=== PATIENT | male | born 1995 | race Caucasian/White ===

== ENCOUNTER 2019-08-20 13:48 | Emergency (ER) | payer OTHER, SELFPAY ==
[2019-08-20 13:59] VITALS: BP 136/84; PULSE 66; RESP 18; TEMP 36.4; O2SAT 100
[2019-08-20 14:23] LABS: Add Manual Diff / Slide Review NO; Basophils Absolute Auto 0 /uL (0-100); Basophils Percent Auto 0.5 % (0-2); Eosinophils Absolute Auto 100 /uL (0-450); Eosinophils Percent Auto 1.2 % (2-4); Hematocrit 40.7 % (41-53); Hemoglobin 14.3 g/dL (13.5-17.5); Lymphocytes Absolute Auto 1300 /uL (1100-4500); Lymphocytes Percent Auto 15.8 % (25-40); Mean Corpuscular HGB Conc 35.2 % (30-36); Mean Corpuscular Hemoglobin 29.4 PG (26-34); Mean Corpuscular Volume 83.6 fL (80-100); Monocytes Absolute Auto 600 /uL (0-900); Monocytes Percent Auto 7.1 % (3-14); Neutrophils Absolute Auto 6100 /uL (1500-7000); Neutrophils Percent Auto 75.4 % (50-75); Platelet Count 263 X10^3/uL (150-400); Red Blood Cell Count 4.87 X10^6/uL (4.5-5.9); Red Cell Distribution Width 12.3 % (11.6-14.8); White Blood Cell Count 8.1 X10^3/uL (4.5-11.0)
[2019-08-20] MEDS: SODIUM CHLORIDE 0.9% 1,000 ML 1000 ML IV (14:25)
[2019-08-20] MEDS: KETOROLAC 60 MG/2 ML VIAL 30 MG IV (14:25)
[2019-08-20] MEDS: ONDANSETRON 4 MG/2 ML INJ IV (14:25)
[2019-08-20 14:28] LABS: BUN Creatinine Ratio 18.8 (6-22); Blood Urea Nitrogen 15 mg/dL (9-20); Calcium 9.7 mg/dL (8.4-10.2); Carbon Dioxide 30 mmol/L (22-32); Chloride 100 mmol/L (98-107); Estimated Glomerular Filt Rate > 60.0 mL/min (>60); Glucose 101 mg/dL (70-100); HEMOLYSIS 16 (0-50); Potassium 3.8 mmol/L (3.4-5.1); Sodium 140 mmol/L (137-145)
[2019-08-20 15:20] VITALS: BP 132/78; PULSE 88; RESP 12; O2SAT 100
--- NOTE | 2019-08-20 15:55 | DI.CT.S_ITS ---
PROCEDURE: CT KIDNEY URETER BLADDER (KUB) INDICATIONS: flank pain, hematuria TECHNIQUE: Noncontrast 5 mm thick sections acquired from the diaphragms to the symphysis. 5 mm thick coronal and sagittal reformats were then performed. For radiation dose reduction, the following was used: automated exposure control, adjustment of mA and/or kV according to patient size. COMPARISON: None. FINDINGS: Image quality: Excellent. Lung bases: Lung bases are clear. Heart size is normal. Urinary system: Both kidneys are normal in size. Tiny 1 mm right mid pole renal stone. There is an obstructing 3 mm proximal right ureteral stone identified at the level of the right ureteral pelvic junction. Mild right-sided hydronephrosis with dilated right renal pelvis. Nonobstructing 8 x 5 mm left renal stone. No left-sided ureteral stones. No left-sided hydronephrosis. No perinephric fat stranding bilaterally. Bladder wall thickness is normal; no calcified bladder stones. Other solid organs: Liver is normal in size. Gallbladder is unremarkable. Pancreas is normal in contours. Spleen is normal in size. No adrenal nodules. Peritoneum and bowel: Unenhanced bowel loops demonstrate normal wall thickness and caliber. No free fluid or air. Nodes and vessels: No retroperitoneal or mesenteric adenopathy by size criteria. Aorta and inferior vena cava are normal in caliber. Abdominal wall: Small fat-containing umbilical hernia without acute inflammation. Pelvis: No free pelvic fluid. No inguinal hernias or adenopathy. Bones: No suspicious bony lesions. No vertebral body compression fractures. IMPRESSION: 1. A 3 mm obstructing proximal right ureteral stone noted at the level of the right ureteropelvic junction. Additional 1 mm right nephrolith is identified. 2. A nonobstructing 8 x 5 mm left renal stone. Dictated by: Mathew Rousseau M.D. on 08/20/2019 at 16:24 Approved by: aMthew Rousseau M.D. on 08/20/2019 at 16:33
[2019-08-20 16:12] LABS: Appearance Urine UA SL CLOUDY; Bilirubin Urine UA NEGATIVE (NEGATIVE); Glucose Urine UA NEGATIVE (Negative); Ketones Urine UA NEGATIVE (NEGATIVE); Leukocyte Esterase Urine UA NEGATIVE (NEGATIVE); Nitrite Urine UA NEGATIVE (Negative); Occult Blood Urine UA 3+ (Negative); Protein Urine UA 1+ (Negative); Urobilinogen Urine UA 0.2 E.U./dL (0.2)
[2019-08-20 16:15] LABS: Color Urine UA Other
[2019-08-20 16:23] LABS: Amorphous Sediment Urine 2+; Bacteria Urine Occasional (0-1); Culture Indicated Urine Cult Not Indicated; Hyaline Casts Urine 1-5/LPF; Mucus Urine 1+ (Negative); RBC Urine 30-100/HPF (0-5/HPF); Squamous Epithelial Cell Urine None Seen (0-5/HPF); WBC Urine 0-1/HPF (0-5/HPF)
--- NOTE | 2019-08-20 16:47 | ED.MALEGU ---
HPI - Male Genitourinary <MAKEDA Conroy - Last Filed: 08/20/19 18:08> General Chief complaint: Urogenital-Male Stated complaint: pain in side Time Seen by Provider: 08/20/19 14:46 Source: patient Mode of arrival: Ambulatory Limitations: no limitations History of Present Illness HPI Narrative: The patient is a 23-year-old male nonsmoker with history of ADHD who presents with a chief complaint of sudden onset of that started at approximately noon. He denies any hematuria dysuria urgency or frequency. Nurse's nausea no vomiting. Is not taken anything for the pain. States that his father has a history of kidney stones and that this seems like that. Denies any fevers chest pain shortness of breath. Related Data Home Medications Medication Instructions Recorded Confirmed cholecalciferol (vitamin D3) 1,000 1,000 unit PO DAILY 08/04/19 08/04/19 unit capsule krill oil 500 mg capsule 500 mg PO DAILY cap 08/04/19 08/04/19 Previous Rx's Medication Instructions Recorded fluoxetine 20 mg capsule 60 mg PO DAILY #90 cap 05/02/19 guanfacine 1 mg tablet,extended 3 mg PO DAILY #90 tab 06/30/19 release 24 hr dextroamphetamine-amphetamine 10 10 mg PO SEE INSTRUCTIONS #30 tab 08/04/19 mg tablet dextroamphetamine-amphetamine ER 30 mg PO QAM #30 cap 08/04/19 30 mg 24hr capsule,extend release hydrocodone-acetaminophen [Livingston] 1 tab PO Q4-6H PRN #10 tab 08/20/19 ketorolac 10 mg PO TID PRN #15 tab 08/20/19 ondansetron 4 mg PO Q6H PRN #20 tab 08/20/19 tamsulosin [Flomax] 0.4 mg PO DAILY #7 cap 08/20/19 Allergies Allergy/AdvReac Type Severity Reaction Status Date / Time Penicillins [PENICILLINS] Allergy Severe HIVES Verified 08/20/19 14:03 Review of Systems <MAKEDA Conroy - Last Filed: 08/20/19 18:08> Review of Systems Narrative: GENERAL: Denies chills, fatigue, malaise, fever, sweats. HEENT: Denies sinus pain, ear pain, sore throat, difficulty swallowing, dizziness. RESPIRATORY: Denies dyspnea, cough, wheezing, hemoptysis, sputum. CARDIOVASCULAR: Denies chest pain, palpitations, orthopnea, edema, GASTROINTESTINAL: See HPI : See HPI MUSCULOSKELETAL: denies weakness, joint pain, or bony pain SKIN: Denies rash, skin lesions, or other NEUROLOGIC: Denies weakness, headache, numbness, change in speech, confusion, seizures, incoordination. PSYCHIATRIC: No concerning psychosocial issues. 12 point review of systems is negative except for those stated above Patient History <MAKEDA Conroy - Last Filed: 08/20/19 18:08> Social History Smoking Status: Never smoker Smoking Status: Never smoker alcohol intake frequency: 0-2 drinks per day Substance Use Type: does not use Exam <MAKEDA Conroy - Last Filed: 08/20/19 18:08> Narrative Exam Narrative: GENERAL: This is a well-nourished, well-developed patient, in no acute distress HEAD: Atraumatic. Normocephalic. No temporal or scalp tenderness. EYES: Pupils equal round and reactive. Extraocular motions intact. No scleral icterus. No injection or drainage. ENT: Nose without bleeding, purulent drainage or septal hematoma. Throat without erythema, tonsillar hypertrophy or exudate. Uvula midline. Airway patent. NECK: Trachea midline. No JVD or lymphadenopathy. Supple, nontender, no meningeal signs. CARDIOVASCULAR: Regular rate and rhythm RESPIRATORY: Clear to auscultation. Breath sounds equal bilaterally. No wheezes, rales, or rhonchi. No cough. No increased respiratory effort. No accessory muscle use. GASTROINTESTINAL: Abdomen soft, non-tender, nondistended. No hepato-splenomegaly, or palpable masses. No guarding. EXTREMITIES: No clubbing, cyanosis, or edema. No joint tenderness, effusion, or edema noted. BACK: Nontender without deformity or crepitance. Flank tenderness noted right side, no flank tenderness on left side NEURO: AOx3. Her speech. No gross cranial nerve deficit. SKIN: No rash or erythema visible skin Initial Vital Signs Initial Vital Signs: Vital Signs Temperature 97.6 F 08/20/19 13:59 Pulse Rate 66 08/20/19 13:59 Respiratory Rate 18 08/20/19 13:59 Blood Pressure 136/84 08/20/19 13:59 Pulse Oximetry 100 01/22/20 13:59 <Seng Sullivan MD - Last Filed: 08/21/19 07:23> Initial Vital Signs Initial Vital Signs: Vital Signs Temperature 97.6 F 08/20/19 13:59 Pulse Rate 66 08/20/19 13:59 Respiratory Rate 18 08/20/19 13:59 Blood Pressure 136/84 08/20/19 13:59 Pulse Oximetry 100 08/20/19 13:59 Scores <MAKEDA Conroy - Last Filed: 08/20/19 18:08> GCS Sandhya coma scale eye opening: Spontaneous Sandhya coma scale verbal response: Orientated Sandhya coma scale motor response: Obey commands Shohola coma scale total score: 15 Course <MAKEDA Conroy - Last Filed: 08/20/19 18:08> Orders Ordered: Discontinued Medications Sodium Chloride (Normal Saline 0.9%) 1,000 mls @ 1,000 mls/hr IV BOLUS ONE Stop: 08/20/19 15:02 Last Infusion: 08/20/19 16:06 Dose: 0 mls/hr Documented by: Admin: 08/20/19 14:25 Dose: 1,000 mls/hr Documented by: MEHNAZ Ketorolac Tromethamine (Toradol) 30 mg IV NOW ONE Stop: 08/20/19 14:04 Last Admin: 08/20/19 14:16 Dose: Not Given Documented by: MEHNAZ Ketorolac Tromethamine (Toradol) 30 mg IV NOW ONE Stop: 08/20/19 14:17 Last Admin: 08/20/19 14:25 Dose: 30 mg Documented by: MEHNAZ Ondansetron HCl (Zofran) 4 mg IV NOW ONE Stop: 08/20/19 14:04 Last Admin: 08/20/19 14:25 Dose: 4 mg Documented by: MEHNAZ Vital Signs Vital signs: Vital Signs - 8 hr 08/20/19 13:59 08/20/19 15:20 08/20/19 16:58 Temperature 97.6 F Pulse Rate 66 88 77 Respiratory Rate 18 12 Blood Pressure 136/84 Blood Pressure [Left Arm] 132/78 140/86 Pulse Oximetry 100 100 99 <Seng Sullivan MD - Last Filed: 08/21/19 07:23> Orders Ordered: Discontinued Medications Sodium Chloride (Normal Saline 0.9%) 1,000 mls @ 1,000 mls/hr IV BOLUS ONE Stop: 08/20/19 15:02 Last Infusion: 08/20/19 16:06 Dose: 0 mls/hr Documented by: Admin: 08/20/19 14:25 Dose: 1,000 mls/hr Documented by: MEHNAZ Ketorolac Tromethamine (Toradol) 30 mg IV NOW ONE Stop: 08/20/19 14:04 Last Admin: 08/20/19 14:16 Dose: Not Given Documented by: MEHNAZ Ketorolac Tromethamine (Toradol) 30 mg IV NOW ONE Stop: 08/20/19 14:17 Last Admin: 08/20/19 14:25 Dose: 30 mg Documented by: MEHNAZ Ondansetron HCl (Zofran) 4 mg IV NOW ONE Stop: 08/20/19 14:04 Last Admin: 08/20/19 14:25 Dose: 4 mg Documented by: MEHNAZ Vital Signs Vital signs: Vital Signs - 8 hr 08/20/19 13:59 08/20/19 15:20 08/20/19 16:58 Temperature 97.6 F Pulse Rate 66 88 77 Respiratory Rate 18 12 Blood Pressure 136/84 Blood Pressure [Left Arm] 132/78 140/86 Pulse Oximetry 100 100 99 MDM - Male Genitourinary <INDIA Conroy-BC - Last Filed: 08/20/19 18:08> Differential Diagnosis Differential diagnosis: Likely urinary tract infection, acute retention of urine and other Lab Data Attestation: I reviewed the patient's lab results. Result diagrams: 08/20/19 14:08 08/20/19 14:08 Labs: Lab Results 08/20/19 08/20/19 08/20/19 Range/Units 14:08 14:08 16:07 WBC 8.1 (4.5-11.0) X10^3/uL RBC 4.87 (4.5-5.9) X10^6/uL Hgb 14.3 (13.5-17.5) g/dL Hct 40.7 L (41-53) % MCV 83.6 (80-100) fL MCH 29.4 (26-34) PG MCHC 35.2 (30-36) % RDW 12.3 (11.6-14.8) % Plt Count 263 (150-400) X10^3/uL Neut % (Auto) 75.4 H (50-75) % Lymph % (Auto) 15.8 L (25-40) % Chambers % (Auto) 7.1 (3-14) % Eos % (Auto) 1.2 L (2-4) % Baso % (Auto) 0.5 (0-2) % Neut # (Auto) 6100 (7960-5672) /uL Lymph # (Auto) 1300 (9448-7636) /uL Chambers # (Auto) 600 (0-900) /uL Eos # (Auto) 100 (0-450) /uL Baso # (Auto) 0 (0-100) /uL Sodium 140 (137-145) mmol/L Potassium 3.8 (3.4-5.1) mmol/L Chloride 100 (98-107) mmol/L Carbon Dioxide 30 (22-32) mmol/L BUN 15 (9-20) mg/dL Creatinine 0.80 (0.66-1.25) mg/dL Estimated GFR > 60.0 (>60) mL/min BUN/Creatinine Ratio 18.8 (6-22) Glucose 101 H (70-100) mg/dL Calcium 9.7 (8.4-10.2) mg/dL Urine Color Other Urine Appearance Sl cloudy Urine pH 7.0 (4.5-8.0) Ur Specific [place] 1.020 (1.000-1.035) Urine Protein 1+ H (Negative) Urine Glucose (UA) Negative (Negative) g/dL Urine Ketones Negative (NEGATIVE) Urine Occult Blood 3+ H (Negative) Urine Nitrate Negative (Negative) Urine Bilirubin Negative (NEGATIVE) Urine Urobilinogen 0.2 (0.2) E.U./dL Ur Leukocyte Esterase Negative (NEGATIVE) Urine RBC 30-100/hpf H (0-5/HPF) Urine WBC 0-1/hpf (0-5/HPF) Ur Squamous Epith Cells None seen (0-5/HPF) Amorphous Sediment 2+ Urine Bacteria Occasional (0-1) (None) Hyaline Casts 1-5/lpf (None) Urine Mucus 1+ H (Negative) Ur Culture Indicated? Cult not indicated Imaging Data CT scan - abdomen/pelvis: Radiologist's Impression: [address] [place] [id number] Scan Report Signed Patient: Jose Car [facility]#: [id number] : 1995Acct:[id number] Age/Sex: 23 MDate of Service: 08/20/19 Loc: ED Accession Number: [id number] Procedure: CT kidney ureter bladder (KUB) Ordering Provider: Padmini Cosme- PROCEDURE: CT KIDNEY URETER BLADDER (KUB) INDICATIONS: flank pain, hematuria TECHNIQUE: Noncontrast 5 mm thick sections acquired from the diaphragms to the symphysis. 5 mm thick coronal and sagittal reformats were then performed. For radiation dose reduction, the following was used: automated exposure control, adjustment of mA and/or kV according to patient size. COMPARISON: None. FINDINGS: Image quality: Excellent. Lung bases: Lung bases are clear. Heart size is normal. Urinary system: Both kidneys are normal in size. Tiny 1 mm right mid pole renal stone. There is an obstructing 3 mm proximal right ureteral stone identified at the level of the right ureteral pelvic junction. Mild right-sided hydronephrosis with dilated right renal pelvis. Nonobstructing 8 x 5 mm left renal stone. No left-sided ureteral stones. No left-sided hydronephrosis. No perinephric fat stranding bilaterally. Bladder wall thickness is normal; no calcified bladder stones. Other solid organs: Liver is normal in size. Gallbladder is unremarkable. Pancreas is normal in contours. Spleen is normal in size. No adrenal nodules. Peritoneum and bowel: Unenhanced bowel loops demonstrate normal wall thickness and caliber. No free fluid or air. Nodes and vessels: No retroperitoneal or mesenteric adenopathy by size criteria. Aorta and inferior vena cava are normal in caliber. Abdominal wall: Small fat-containing umbilical hernia without acute inflammation. Pelvis: No free pelvic fluid. No inguinal hernias or adenopathy. Bones: No suspicious bony lesions. No vertebral body compression fractures. IMPRESSION: 1. A 3 mm obstructing proximal right ureteral stone noted at the level of the right ureteropelvic junction. Additional 1 mm right nephrolith is identified. 2. A nonobstructing 8 x 5 mm left renal stone. Dictated by: Mathew Rousseau M.D. on 08/20/2019 at 16:24 Approved by: Mathew Rousseau M.D. on 08/20/2019 at 16:33 [facility] Narrative Medical decision making narrative: The patient is a 23-year-old male who presents with a chief complaint of sudden onset of right-sided flank pain. Is colicky in nature, patient states he feels much better with the above-stated therapies. CT shows a right-sided ureteral stone, left nephrolithiasis, labs show good renal function. No signs of infection in urine. Patient was given pain medications, nausea medications, Flomax. Discussed not combining Toradol with NSAIDs. Discussed not taking Livingston with anything sedating taking it driving etcetera. Discussed the importance of following up with primary care provider the next few days, pushing fluids, monitoring for signs of worsening such as inability keep down fluids, dysuria. Discussed at length following up with PCP as well as coming back to the emergency department for any acute concerns. Patient has no questions or concerns upon discharge and states understanding of return precautions as well as follow-up care. <Seng Sullivan MD - Last Filed: 08/21/19 07:23> Lab Data Labs: Lab Results 08/20/19 08/20/19 08/20/19 Range/Units 14:08 14:08 16:07 WBC 8.1 (4.5-11.0) X10^3/uL RBC 4.87 (4.5-5.9) X10^6/uL Hgb 14.3 (13.5-17.5) g/dL Hct 40.7 L (41-53) % MCV 83.6 (80-100) fL MCH 29.4 (26-34) PG MCHC 35.2 (30-36) % RDW 12.3 (11.6-14.8) % Plt Count 263 (150-400) X10^3/uL Neut % (Auto) 75.4 H (50-75) % Lymph % (Auto) 15.8 L (25-40) % Chambers % (Auto) 7.1 (3-14) % Eos % (Auto) 1.2 L (2-4) % Baso % (Auto) 0.5 (0-2) % Neut # (Auto) 6100 (4441-5461) /uL Lymph # (Auto) 1300 (8101-8380) /uL Chambers # (Auto) 600 (0-900) /uL Eos # (Auto) 100 (0-450) /uL Baso # (Auto) 0 (0-100) /uL Sodium 140 (137-145) mmol/L Potassium 3.8 (3.4-5.1) mmol/L Chloride 100 (98-107) mmol/L Carbon Dioxide 30 (22-32) mmol/L BUN 15 (9-20) mg/dL Creatinine 0.80 (0.66-1.25) mg/dL Estimated GFR > 60.0 (>60) mL/min BUN/Creatinine Ratio 18.8 (6-22) Glucose 101 H (70-100) mg/dL Calcium 9.7 (8.4-10.2) mg/dL Urine Color Other Urine Appearance Sl cloudy Urine pH 7.0 (4.5-8.0) Ur Specific [place] 1.020 (1.000-1.035) Urine Protein 1+ H (Negative) Urine Glucose (UA) Negative (Negative) g/dL Urine Ketones Negative (NEGATIVE) Urine Occult Blood 3+ H (Negative) Urine Nitrate Negative (Negative) Urine Bilirubin Negative (NEGATIVE) Urine Urobilinogen 0.2 (0.2) E.U./dL Ur Leukocyte Esterase Negative (NEGATIVE) Urine RBC 30-100/hpf H (0-5/HPF) Urine WBC 0-1/hpf (0-5/HPF) Ur Squamous Epith Cells None seen (0-5/HPF) Amorphous Sediment 2+ Urine Bacteria Occasional (0-1) (None) Hyaline Casts 1-5/lpf (None) Urine Mucus 1+ H (Negative) Ur Culture Indicated? Cult not indicated Discharge Plan Departure Patient Disposition: Home Clinical Impression: Nephrolithiasis, Right ureteral calculus Discharge Date/Time: 08/20/19 17:48 Instructions: DI for Kidney Stones Activity Restrictions/Additional Instructions: Your CT shows a 3 mm stone in your right ureter as well as a nonobstructing 8 x 5 mm stone in your left kidney I have sent for prescriptions to [facility] in [facility]. This includes Flomax to help you pass the stone, Zofran, ketorolac for pain as well as Livingston for pain You have been prescribed narcotic medications. While on these medications you cannot drive or operate heavy machinery. Additionally you cannot sign legal documents or perform any duties such as this. 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 I have given you a prescription of Toradol. This is an NSAID. Do not combine it with other NSAIDs such as Aleve or ibuprofen. I suggest taking it with some food, as it can irritate your stomach. Please monitor for worsening signs such as inability keep down fluids, d burning when you urinate etcetera please come back to the emergency department for any acute concerns. Please follow-up with primary care provider in the next few days. The walk-in clinic will also do emergency department follow-up if needed. Please come back to the emergency department for any acute concerns Please strain your urine to try to catch the stone Prescriptions: New ketorolac 10 mg tablet 10 mg PO TID PRN (Reason: pain) Qty: 15 RF: 0 hydrocodone-acetaminophen [Livingston] 5-325 mg tablet 1 tab PO Q4-6H PRN (Reason: pain) Qty: 10 RF: 0 ondansetron 4 mg tablet,disintegrating 4 mg PO Q6H PRN (Reason: nausea and vomiting) Qty: 20 RF: 0 tamsulosin [Flomax] 0.4 mg capsule 0.4 mg PO DAILY Qty: 7 RF: 0 No Action krill oil 500 mg capsule 500 mg PO DAILY RF: 0 cholecalciferol (vitamin D3) 1,000 unit capsule 1,000 unit PO DAILY RF: 0 dextroamphetamine-amphetamine [Adderall] 10 mg tablet 10 mg PO SEE INSTRUCTIONS Qty: 30 RF: 0 dextroamphetamine-amphetamine [Adderall XR] 30 mg capsule,extended release 24hr 30 mg PO QAM Qty: 30 RF: 0 fluoxetine 20 mg capsule 60 mg PO DAILY Qty: 90 RF: 3 guanfacine [Intuniv ER] 1 mg tablet extended release 24 hr 3 mg PO DAILY Qty: 90 RF: 3 Referrals: [facility] Resources [Outside]
[2019-08-20 16:58] VITALS: BP 140/86; PULSE 77; O2SAT 99
== END 2019-08-20 17:48 | disposition home or self-care (01) ==
PROVIDERS: Emergency Medicine; Emergency Provider Nurse Practitioner Family
DX: N20.2 Calculus of kidney with calculus of ureter (principal)
CPT/HCPCS: 36415; 74176; 80048; 81001; 85025; 96361; 96374; 96375; 99284; J1885; J2405